=== PATIENT | female | born 1990 | race Two or more races ===

== ENCOUNTER → 2025-08-03 | Outpatient (CLI) | payer BC ==
[~2025-08-03] MED LIST: CEFP100T9 MT
[2025-08-04 09:24] LABS: BASOPHILS % 1.0 % (0.0-2.0); EOSINOPHILS % 8.0 % (0.0-5.0); HEMATOCRIT. 34.0 % (36.0-48.0); HEMOGLOBIN. 10.9 g/dL (12.0-16.0); LYMPHOCYTES % 33.9 % (20.0-50.0); MEAN PLATELET VOLUME 9.0 fl (7.4-10.4); MONOCYTES % 8.1 % (2.0-8.0); NEUTROPHILS % 49.0 % (40.0-76.0); PLATELET 213 x1000/uL (130-400); RED BLOOD CELL COUNT 4.20 mill/uL (4.2-5.4); RED CELL DISTRIBUTION WIDTH 15.3 % (11.6-14.6)
[2025-08-04 09:48] LABS: VITAMIN B12 SERUM 506 pg/mL (211-911)
[2025-08-04 09:50] LABS: CLARITY URINE CLEAR (CLEAR); COLOR URINE YELLOW (YELLOW); GLUCOSE URINE NEGATIVE (NEGATIVE); KETONES URINE NEGATIVE (NEGATIVE); LEUKOCYTE ESTERASE URINE TRACE (NEGATIVE); NITRITE URINE NEGATIVE (NEGATIVE); OCCULT BLOOD URINE NEGATIVE (NEGATIVE); PH URINE 6.5 (4.5-8.0); PROTEIN URINE NEGATIVE (NEGATIVE); SPECIFIC GRAVITY URINE 1.010 (1.005-1.030); UROBILINOGEN URINE 0.2 E.U./dL (0.2-1.0)
[2025-08-04 10:19] LABS: CREATININE 0.7 mg/dL (0.6-1.0); TRIGLYCERIDE 43 mg/dL (0-150); UREA NITROGEN BLOOD 8 mg/dL (9-23)
[2025-08-04 10:20] LABS: HEPATITIS A AB IGM NEGATIVE (Negative); LDL CHOLESTEROL 107 mg/dL (5-100)
[2025-08-04 10:33] LABS: B-HCG QUANTITATIVE 4215 mIU/mL (<6)
[2025-08-04 11:43] LABS: RBC URINE 0-2 /hpf (0-2)
[2025-08-04 11:48] LABS: SQUAMOUS EPITHELIAL CELL URINE 3+ /lpf (RARE/1+)
[2025-08-04 11:50] LABS: WBC URINE 0-2 /hpf (0-2)
[2025-08-04 11:51] LABS: MUCUS URINE TRACE /lpf (< = 2+)
[2025-08-05 04:07] LABS: HSV TYPE 2 SPECIFIC AB IGG Non Reactive (Non Reactive)
[2025-08-05 09:07] LABS: HEPATITIS B SURFACE AB QUAL Reactive (.); HOMOCYSTEINE PLASMA 7.6 umol/L (0.0-14.5); VITAMIN D 25-OH 20.5 ng/mL (30.0-100.0)
[2025-08-07 06:11] LABS: CHLAMYDIA TRACHOMATIS NAA Negative (Negative); NEISSERIA GONORRHOEAE NAA Negative (Negative)
[2025-08-12 10:10] LABS: METHYLMALONIC ACID 137 nmol/L (0-378)
== END | disposition home or self-care (01) ==
LOC: LAB 12:24
DX: E55.9 Vitamin D deficiency, unspecified (principal); D64.9 Anemia, unspecified; N39.0 Urinary tract infection, site not specified; R79.89 Other specified abnormal findings of blood chemistry; Z13.29 Encounter for screening for other suspected endocrine disorder; Z13.220 Encounter for screening for lipoid disorders; Z20.2 Contact with and (suspected) exposure to infections with a predominantly sexual mode of transmission; Z11.3 Encounter for screening for infections with a predominantly sexual mode of transmission; Z11.59 Encounter for screening for other viral diseases; Z78.9 Other specified health status
CPT/HCPCS: 36415; 80048; 80061; 81003; 82306; 82607; 82728; 83036; 83090; 83540; 83550; 83921; 84443; 84702; 85025; 86695; 86709; 87340; 87491

== ENCOUNTER 2025-08-06 08:29 | Emergency (ER) | payer BC ==
[~2025-08-06] VITALS: Ht 160 cm; Wt 57.0 kg
[2025-08-06 08:31] VITALS: O2SAT 100
[2025-08-06 09:07] LABS: BASOPHILS % 0.7 % (0.0-2.0); EOSINOPHILS % 5.6 % (0.0-5.0); HEMATOCRIT. 34.9 % (36.0-48.0); HEMOGLOBIN. 11.0 g/dL (12.0-16.0); LYMPHOCYTES % 34.4 % (20.0-50.0); MEAN PLATELET VOLUME 9.0 fl (7.4-10.4); MONOCYTES % 7.3 % (2.0-8.0); NEUTROPHILS % 52.0 % (40.0-76.0); PLATELET 197 x1000/uL (130-400); RED BLOOD CELL COUNT 4.23 mill/uL (4.2-5.4); RED CELL DISTRIBUTION WIDTH 15.5 % (11.6-14.6)
[2025-08-06 09:22] LABS: CREATININE 0.7 mg/dL (0.6-1.0); UREA NITROGEN BLOOD 6 mg/dL (9-23)
[2025-08-06 09:24] LABS: CLARITY URINE CLEAR (CLEAR); COLOR URINE YELLOW (YELLOW); GLUCOSE URINE NEGATIVE (NEGATIVE); KETONES URINE NEGATIVE (NEGATIVE); LEUKOCYTE ESTERASE URINE TRACE (NEGATIVE); NITRITE URINE NEGATIVE (NEGATIVE); OCCULT BLOOD URINE NEGATIVE (NEGATIVE); PH URINE 6.0 (4.5-8.0); PROTEIN URINE NEGATIVE (NEGATIVE); SPECIFIC GRAVITY URINE 1.006 (1.005-1.030); UROBILINOGEN URINE 0.2 E.U./dL (0.2-1.0)
[2025-08-06 09:38] LABS: BACTERIA URINE TRACE; RBC URINE 0-2 /hpf (0-2); SQUAMOUS EPITHELIAL CELL URINE 1+ /lpf (RARE/1+); YEAST URINE NONE SEEN
[2025-08-06 09:42] LABS: B-HCG QUANTITATIVE 4299 mIU/mL (<6)
[2025-08-06] MEDS: CEPHALEXIN 250MG CAPSULE PO ONE (10:11)
[2025-08-06] MEDS ORDERED: CEFP100T9 MT (10:55)
[2025-08-06 11:09] VITALS: BP 110/85; PULSE 76; RESP 14; TEMP 36.7; O2SAT 100
== END 2025-08-06 11:10 | disposition home or self-care (01) ==
LOC: ER 08:29 → CANBEDREQ 11:00 → ER 11:10
DX: O20.9 Hemorrhage in early pregnancy, unspecified (principal); O23.41 Unspecified infection of urinary tract in pregnancy, first trimester; N93.0 Postcoital and contact bleeding; Z3A.01 Less than 8 weeks gestation of pregnancy
CPT/HCPCS: 36415; 76801; 80048; 81003; 84702; 85025; 86850; 86900; 99284

== ENCOUNTER 2025-08-09 09:51 | Emergency (ER) | payer BC ==
[~2025-08-09] VITALS: Ht 162.6 cm; Wt 57.0 kg
[2025-08-09 09:55] VITALS: O2SAT 100
[2025-08-09 10:06] VITALS: TEMP 36.9
[2025-08-09 12:54] VITALS: BP 112/74; PULSE 74; RESP 17; O2SAT 100
== END 2025-08-09 12:57 | disposition home or self-care (01) ==
LOC: ER 10:02
DX: O20.9 Hemorrhage in early pregnancy, unspecified (principal); O99.281 Endocrine, nutritional and metabolic diseases complicating pregnancy, first trimester; R10.20 Pelvic and perineal pain unspecified side; Z3A.01 Less than 8 weeks gestation of pregnancy
CPT/HCPCS: 36415; 76801; 84702; 99284